=== PATIENT | male | born 1935 | race Two or more races ===

== ENCOUNTER 2016-09-12 09:18 | Emergency (ER) | payer MEDICARE ==
--- NOTE | 2016-09-12 10:18 | RAD ---
EXAMINATION:CHEST - 2 VIEWS CLINICAL INDICATION: Severe posterior chest pain. COMPARISON: 09/08/2016 FINDINGS: The cardiomediastinal silhouette is unaltered from prior examination. There is mild aortic ectasia. Large axial hiatal hernia is again noted. There is no adenopathy identified. There is no pleural effusion. There are prominent bronchovascular markings. Changes which may reflect mild peripheral fibrosis in the right lower lung zone is stable. The osseous structures are unremarkable for age. Median sternotomy wires are noted. IMPRESSION: Stable senescent changes and postinflammatory changes of the thorax. There is a large axial hiatal hernia. No superimposed acute process is identified.
== END 2016-09-12 12:48 | disposition home or self-care (01) ==
LOC: ED 09:18
DX: N28.9 Disorder of kidney and ureter, unspecified (principal); R07.81 Pleurodynia

== ENCOUNTER 2016-11-21 09:52 | Day surgery (SDC) | payer MEDICARE ==
--- NOTE | 2016-11-20 14:14 | HP ---
DATE OF CLINIC: 11/15/2016 MITUL SANON : 1935 PLANNED PROCEDURE: Right Knee Arthroscopic Partial Synovectomy DATE OF PROCEDURE: November 21, 2016 SURGEON: Carlos Eduardo Villagran M.D. PCP: Dr. Julio C Scott ACTIVE PROBLEMS * Allergic Rhinitis * Anemia Macrocytic * Anxiety Disorder Due To General Medical Condition * BPH W/O URINARY OBS/LUTS - TURP by Dr. Kennedy 10/2011 (last seen 03/2015 f/u in 2 years) * Cardiomyopathy - ischemic, [facility] last seen LVEF = 35-40% * Carotid Artery Stenosis - moderate bilateral intercal CA 04/2012, last check 2013 * CATARACT NEC * CHR ISCHEMIC HRT DIS NOS - [place] 1989. [facility] last visit 04/2015 * Chronic Kidney Disease Stage 4 - LENNY discontinued, Dr. Calixto (last visit 02/2015), goal weight around 190, low sodium diet * Colonic Diverticulosis - colonoscopy 05/[address] Oreilly * Conductive Hearing Loss * Diabetes Mellitus Diabetic Autonomic Neuropathy * Diabetes Mellitus Type 2 * Diabetes Mellitus Type 2 with Complication Uncontrolled - pneumovax 06/1998, eye exam 09/12 * Diabetic Gastropathy * Essential Hypertension * Gastritis Chronic Antral * GERD-GASTROESOPHAGEAL REFLUX * HERPES ZOSTER NOS-SHINGLES NOS * Hiatal Hernia - EGD 05/[address] Oreilly * Hyperlipidemia * Hyperparathyroidism - followed by nephrology * Inguinal Hernia Bilateral * Intervertebral Disc Degeneration - Cervical * Intervertebral Disc Degeneration - Lumbar * Male Erectile Disorder * Osteoarthritis Localized Knee * Polyneuropathy Diabetic * SICCA SYNDROME - mucosal on EGD 1995 * Transient Ischemic Attack (tia) * Unilateral primary osteoarthritis, right knee * Vitamin D Deficiency HISTORY OF PRESENT ILLNESS Mitul Sanon is an 81 year old male. * Medication list reviewed with patient allergy list reviewed with patient. Mr. Sanon is in today pre-operatively for his upcoming right knee arthroscopy with Dr. Villagran on 11/21/16. Patient presents in good spirits and states he is eager to move forward. He recently took a cruise and came home with a cold. He denies fever or constitutional symptoms. He has shortness of breath with exertion but recovers quickly. This is not a new condition. No other recent illness, change in health, or prior surgical complications. His recent consult with Dr. Villagran follows: 80-year-old male here for a 2nd opinion with respect to his right knee. He is a patient of Dr. Ramirez and had an uncomplicated right TKA 04/11/16. Unfortunately, since surgery he has had persistent discomfort that is worse with ambulation. This seems to have been fairly diffuse initially, but on questioning today it is more problematic anterolaterally greater than anteromedially. It is worse with weight-bearing and flexion and extension of the knee although he does complain of some intermittent rest pain. He has been through PT without improvement. Prior radiographs are available for my review and fail to show any obvious malalignment or problem. He has not had any improvement with Tramadol. He is unable to tolerate anti-inflammatories. He denies radicular symptoms. No significant hip pain. He is wondering about my thoughts with respect to treatment algorithm. Significant comorbidities include cardiomyopathy, carotid artery stenosis, chronic renal insufficiency, diabetes with neuropathy for which he is on Gabapentin as well as history of previous strokes/TIA in the past. He does have hypertension. CURRENT MEDICATION * *DME Miscellaneous use as directed to check blood sugars 1-4x/day 1. glucometer2. glucose test strips #100 refill x 113. lancets #100 refill x 11, 30 days, 0 refills * Aspirin 325 MG Tablet once a day 0 days, 0 refills * Calcitriol 0.25 MCG Capsule 1 once a day 0 days, 0 refills * Carvedilol 3.125 MG Tablet 1 twice a day 0 days, 0 refills * Ciprofloxacin HCl 250 MG Tablet as directed half a tab weekly, 0 days, 0 refills * Cyclobenzaprine HCl 5 MG Tablet one tab up to TID as needed for muscle spasm, 30 days, 1 refills * Gabapentin 300 MG Capsule taking 2 tabs at night, 30 days, 11 refills * GlipiZIDE XL 2.5 MG Tablet Extended Release 24 Hour 1 once a day, 90 days, 1 refills * Omeprazole 20 MG Capsule Delayed Release 1 twice a day, 30 days, 11 refills * Pravastatin Sodium 40 MG Tablet 1 once a day., 90 days, 2 refills * Sertraline HCl 50 MG Tablet 1 once a day, 30 days, 11 refills * Sodium Bicarbonate 650 MG Tablet 1 twice a day Kidney Care, 0 days, 0 refills * Vitamin B12 1000 MCG Tablet Extended Release 1 once a day 0 days, 0 refills PAST MEDICAL/SURGICAL HISTORY Reported: No recent change in medical history and Surgery/Hospitalizations: Double hernia repair, abdominal 10/06/2015 at [facility]. Medical: A recent examination by an supervisor self service store, a self-exam of the feet was performed daily, GI problems, Reported numbness Fingers, Reported tingling Fingers, Diabetes Mellitus, history of Arthritis, Hypertension Under control with meds, and Stroke TIA. Surgical / Procedural: Surgical / procedural history heart bypass surgery nos Triple bypass, Arthroscopy right knee 1975, Turp 2010 and replacement of a knee Right performed by Dr. Ovidio Ramirez at the [facility] on 04/11/2016. Medications: Taking prophylactic aspirin. Exposure: Exposure to an upper respiratory infection. Dietary: Weight control decreasing overall calories. Diagnoses: Coronary artery disease AK 1988 with CABG x3 Acute myocardial infarction. Diverticulitis of colon Irritable bowel syndrome Hepatic disorders jaundice in grade school Hepatitis. Renal failure. jaundice. Diabetes mellitus. Stroke syndrome. Measles (rubeola) Varicella Prostate surgery Right knee surgery-1995 Rhinoplasty-1996. Surgical: * Cataract surgery * A CABG was done 1997 * Inguinal hernia repair - Right [facility] 11/04/15 * Inguinal hernia repair - Left [facility] 11/04/15 * Orthopedic surgery right knee arthroscopy 1975 SOCIAL HISTORY Social history unchanged. Personal: Recent emotional stress and chronic emotional stress. Diet: Nutritional quality of diet eats chips and fast foods at least once every 2 weeks and dietary excesses. Behavioral: Caffeine use 2 cups a day, daily coffee consumption, former smoker for 1 year quit in 1957, and non-smoker quit smoking. Smoking status: Former smoker. Alcohol: Alcohol 10 drinks a week, alcohol use couple drinks every night, a social drinker 2 per night, alcohol use: 2 drinks or less per day, and AUDIT alcohol use disorders identification test score = 5, level II. Home Environment: Lives with spouse. 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 * SBIRT Screening Performed Increased calories, and eating more junk foods. ALLERGIES * Sucralfate Reaction: Nausea/Vomiting/Diarrhea * Sulfa Drugs Reaction: Skin Rashes/Hives FAMILY HISTORY 5 children living Coronary artery disease MGM Hypertension Diabetes mellitus mother Depression mother Diabetes- Mother Maternal: Hypertension Hyperlipidemia Diabetes mellitus Depression Family medical history Mother- Heart Disease, Diabetes, Hypertension REVIEW OF SYSTEMS Systemic: No fever and no recent weight change. Head: Head symptoms Upper respiratory symptoms following a recent cruise. Cardiovascular: No cardiovascular symptoms. Pulmonary: No pulmonary symptoms. Gastrointestinal: No gastrointestinal symptoms. Psychological: No psychological symptoms. Skin: No skin lesions and no rash. PHYSICAL FINDINGS * Vitals taken 11/15/2016 09:58 am BP-Sitting L 148/76 mmHg 100 - 120/60 - 80 BP Cuff Size Regular Pulse Rate-Sitting 77 bpm 50 - 100 Temp-Oral 97.1 F 96 - 101 Height 70 in 64 - 74 Weight 197 lbs 120 - 198 Body Mass Index 28.3 kg/m2 Body Surface Area 2.07 m2 Pain Level 0 Ears, Nose, Throat: * ENT: normal. Lungs: * Clear to auscultation. Cardiovascular: Heart Rate and Rhythm: * Abnormal slightly irregular dropping a beat every 6-8. Abdomen: * Normal. Neurological: Motor: * Dominant Hand = Right Hand. Patient is a well-developed, well-nourished male in no acute distress, slightly anxious, but otherwise normal appearing mood and affect. Evaluation of the right lower extremity shows a well-healed anterior incision, trace effusion, no focal swelling. ROM actively is 0-120, passive 0-125, good alignment, reasonable joint play. He does have some mild diffuse discomfort. Focally seems to be more painful to palpation just over the lateral retinaculum and particularly over the inferolateral pole. To a less degree on the medial side. This is accentuated with compression at that point and knee flexion. I am able to palpate some crepitation that is uncomfortable with this maneuver as well. Patella seems to track well. NT over the tibial tubercle, NT over the distal quadriceps tendon and no focal tenderness over the patellar tendon. He is NT over Gerdy's tubercle. He does seem to have some mild discomfort over the lateral epicondyle that is focal as well. Calf is soft and NT. Distal light touch sensation and motor function are symmetric, although decreased sensory function in a stocking glove distribution. Pulses are palpable. Foot is warm. Gentle rotation of the hip is well maintained and does not accentuate irritability. Contralateral knee shows no focal tenderness with intact skin integrity. Motion 0-130 degrees. TESTS Xrays, 3 views obtained today, show a posterior stabilized arthroplasty in good position and alignment. ASSESSMENT Painful right TKA approximately 5 months after surgery. I suspect this is at least in part due to peripatellar fibrosis (meniscoid lesion). THERAPY * Patient fall risk screen positive. * Patient eligible for fall risk assessment. * Patient received fall risk assessment. PLAN Right knee arthroscopic partial synovectomy. Discussed with patient in detail the limitations, expectations as well as risks and possible complications of surgery including, but not limited to wound problems or infection, neurovascular injury, continued knee pain or dysfunction including the possibility of failure over time that may require additional operative or nonoperative treatment. Patient also realizes the perioperative risks including risks associated with anesthesia and would like to proceed. A full PAR conference was held, questions and concerns addressed and informed consent was obtained. Patient will be sent from my office for completion of the preoperative workup. CARE TEAM Tab Strange MD Nephrology Nida Fung M.D. Cardiovascular Disease Ab Kennedy MD Urology Scott Mayorga MD Surgery Maira Hoffman MD Surgery Julio C Scott MD [facility] CC: Julio C Scott MD [facility] RS/sg
[2016-11-21] MEDS ORDERED: PROPOFOL 20 ML IV ONE ×2 (10:00→10:01)
[2016-11-21] MEDS ORDERED: LIDOCAINE 2% (PRES FREE) 5 ML VIAL ONE (10:01)
[2016-11-21] MEDS ORDERED: MIDAZOLAM HCL 1 MG/ML 2ML VIAL ONE (10:01)
[2016-11-21] MEDS ORDERED: FENTANYL 100 MCG/2 ML VIAL ONE ×3 (10:01→13:50)
[2016-11-21] MEDS ORDERED: SODIUM CHLORIDE 0.9% 1,000 ML ONE (10:31)
[2016-11-21] MEDS ORDERED: IV START KIT ONE (10:32)
[2016-11-21] MEDS ORDERED: CEFAZOLIN SODIUM 2 GRAM PREMIX 100 ML IV ONE (10:32)
[2016-11-21] MEDS ORDERED: BUPIVACAINE 0.25% EPI PF 30 ML VIAL ONE ×2 (11:52→12:26)
[2016-11-21] MEDS ORDERED: MORPHINE SULFATE (DURAMORPH) 1 MG/ML 10ML AMP ONE (12:07)
[2016-11-21] MEDS ORDERED: LABETALOL HCL 5 MG/ML 20ML VIAL IV PRN (12:19)
[2016-11-21] MEDS ORDERED: PROMETHAZINE HCL 25 MG/ML VIAL IM PRN (12:19)
[2016-11-21] MEDS ORDERED: ATROPINE SULFATE 0.4 MG/1 ML VIAL IV PRN (12:19)
[2016-11-21] MEDS ORDERED: MEPERIDINE 25 MG/ML SYRINGE IV PRN (12:19)
[2016-11-21] MEDS ORDERED: ONDANSETRON 4 MG/2ML 2 ML VIAL IV PRN ×2 (12:19→15:53)
[2016-11-21] MEDS ORDERED: NALOXONE HCL 0.4 MG/ML VIAL IV PRN (12:19)
[2016-11-21] MEDS ORDERED: HYDROMORPHONE HCL 1 MG/ML SYRINGE IV PRN ×2 (12:19→15:53)
[2016-11-21] MEDS ORDERED: HYDRALAZINE HCL 20 MG/1 ML VIAL IV PRN (12:19)
[2016-11-21] MEDS ORDERED: LACTATED RINGERS 1,000 ML IV SCH (12:30)
[2016-11-21] MEDS ORDERED: EPHEDRINE SULFATE UD SYR 25 MG 25 MG/5 ML SYRINGE IV ONE (12:52)
[2016-11-21] MEDS: FENTANYL 100 MCG/2 ML VIAL IV PRN ×2 (13:54→14:03)
[2016-11-21] MEDS ORDERED: HYDROCODONE/ACETAMINOPHEN 5/325MG TABLET PO PRN (14:44)
[2016-11-21] MEDS ORDERED: HYDROCODONE/ACETAMINOPHEN 5/325MG TABLET ONE (15:34)
--- NOTE | 2016-11-21 15:37 | PCMBPN ---
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 [Same] Procedure: scope/partial synovectomy/debridement Surgeon: Carlos Eduardo Villagran MD Anesthesia: general (Lott) Condition: stable to PAR Complications: none IV Fluids: per anesthesia Estimated Blood Loss: nil Tourniquet Time: zero Specimens: none Implants: none Drains: none
[2016-11-21] MEDS ORDERED: ACETAMINOPHEN 325 MG TABLET PO PRN (15:53)
[2016-11-21] MEDS ORDERED: KETOROLAC TROMETHAMINE 30 MG/ML 1 ML VIAL IV PRN (15:53)
[2016-11-21] MEDS ORDERED: SODIUM CHLORIDE 0.9% 1,000 ML IV SCH (15:53)
--- NOTE | 2016-11-22 09:18 | OP ---
MADAY SANON [id number] : 1935 DATE OF SURGERY: November 21, 2016 PREOPERATIVE DIAGNOSIS: Arthrofibrosis, right knee, with suboptimal ROM after TKA. POSTOPERATIVE DIAGNOSIS: SAME PROCEDURE: Right knee arthroscopic partial synovectomy and debridement. SURGEON: Carlos Eduardo Villagran M.D. ESTIMATED BLOOD LOSS: Minimal ANESTHESIA: General per Lott FLUIDS: IV replacement per anesthesia. TOURNIQUET TIME: Zero DRAINS: None COMPLICATIONS: None INDICATION: Patient is an 81-year-old male with clinical and radiographic history most consistent with arthrofibrosis and suboptimal motion after TKA of the right knee. He had a TKA done within the last year by Dr. Ramirez. He has had persistent anterior pain despite nonoperative measures. History and exam are consistent with the possibility of anterior meniscoid lesion with arthrofibrosis. He has failed to improve with traditional nonoperative treatments and would like to proceed with elective arthroscopic evaluation and treatment. PAR conference was held, questions and concerns were addressed, and informed consent was obtained. For additional details, please refer to the previously dictated preoperative History and Physical Exam. OPERATIVE FINDINGS: A complete diagnostic knee arthroscopy was performed with the following findings: The suprapatellar pouch was mildly synovitic. Patellofemoral joint showed a significant anterolateral thickened fibrous band draped over the lateral aspect of the femoral component. Medially there was thick hypertrophic area carried down to the anterior fat pad, which was hypertrophic and quite thickened. This extended actually up into the posterior stabilized recess of the femoral component. Under anesthesia he had full extension and I was able to get to 120 degrees of flexion without difficulty. Patella mobility was suboptimal. PROCEDURAL DESCRIPTION: Patient was taken to the operating room. General anesthesia was induced and a laryngeal masked airway was placed. The lower extremity was prepped and draped out in the usual sterile fashion. After sterile prep and drape the knee was injected with 45 mL of 0.25% Marcaine with epinephrine. A medial suprapatellar and lateral peripatellar portal were initially established followed by a medial peripatellar portal under direct intraarticular visualization. A standard 4.0 mm 30 degree arthroscope was used. An arthroscopic pump system was utilized. A photographic record was made. A complete diagnostic knee arthroscopy was then performed with findings as discussed above. We turned our attention towards careful meticulous sequential debridement. I used a 3.5 shaver for a portion of this, but for the most part used a VAPR radiofrequency probe in an attempt to minimize bleeding. We took the anterolateral band out, debrided the anterior fat pad and then debrided medially. There was nothing to suggest component malposition or significant wear or problem. Satisfied, after copious irrigation we removed the cannulas and closed the portal sites with interrupted 4-0 Nylon. The knee was injected with an additional 15 mL of 0.25% Marcaine with epinephrine plus 5mg of intraarticular Morphine. A sterile compression wrap was applied. The patient was then awakened, extubated, transferred to their hospital bed and sent to post anesthesia recovery in stable condition. The patient tolerated the procedure well. Sponge, instrument and needle count were correct. LOUISE/mrw CC: Sharmila Scott MD
== END 2016-11-21 16:49 | disposition home or self-care (01) ==
LOC: SDC 09:52
PROVIDERS: ATTEND Orthopaedic Surgery
PROC: 0SBC4ZZ Excision of Right Knee Joint, Percutaneous Endoscopic Approach (ICD-10-PCS; principal; 2016-11-21)
DX: M24.671 Ankylosis, right ankle (principal); Z96.651 Presence of right artificial knee joint; I42.9 Cardiomyopathy, unspecified; I65.29 Occlusion and stenosis of unspecified carotid artery; I12.9 Hypertensive chronic kidney disease with stage 1 through stage 4 chronic kidney disease, or unspecified chronic kidney disease; N18.4 Chronic kidney disease, stage 4 (severe); E11.40 Type 2 diabetes mellitus with diabetic neuropathy, unspecified; Z79.84 Long term (current) use of oral hypoglycemic drugs; Z86.73 Personal history of transient ischemic attack (TIA), and cerebral infarction without residual deficits; Z79.82 Long term (current) use of aspirin; Z87.891 Personal history of nicotine dependence; Z88.2 Allergy status to sulfonamides; Z88.8 Allergy status to other drugs, medicaments and biological substances
CPT/HCPCS: 29877; J3010 ×3; J2274; J2250; J2405; J7030; A9270; J0690